=== PATIENT | female | born 1945 | race American Indian/Alaskan Native ===

== ENCOUNTER 2022-02-09 17:16 | Inpatient (IN) | payer MEDICARE ==
[2022-02-09] MEDS ORDERED: SODIUM CHLORIDE 0.9% 1000 ML 1,000 ML IV ONE (17:32)
--- NOTE | 2022-02-09 17:49 | Cat Scan Report ---
CT HEAD WITHOUT CONTRAST INDICATION / CLINICAL INFORMATION: Stroke symptoms. CVA. TECHNIQUE: All CT scans at this location are performed using CT dose reduction for ALARA by means of automated exposure control. COMPARISON: None available. FINDINGS: HEMORRHAGE: None. EXTRA-AXIAL SPACES: Normal in size and morphology for the patient's age. VENTRICULAR SYSTEM: Normal in size and morphology for the patient's age. CEREBRAL PARENCHYMA: Moderate white matter hypodensities likely representing microangiopathy. No acut e territorial infarct. MIDLINE SHIFT / HERNIATION: None. CEREBELLUM / BRAINSTEM: No significant abnormality. ORBITS: Normal as visualized. SOFT TISSUES: No significant abnormality. SKULL: No significant abnormality. PARANASAL SINUSES / MASTOID AIR CELLS: Normal as visualized. ADDITIONAL FINDINGS: None. IMPRESSION: 1. No acute intracranial abnormality. Signer Name: Tiffani Hernadez MD Signed: 02/09/2022 5:45 PM Workstation Name: [id number]
--- NOTE | 2022-02-09 17:53 | Consultation ---
History of Present Illness Consult date: 02/09/22 History of present illness: [facility] Consult Note # Demographics Consult Type: Acute Stroke Level 1 (0-4.5 hrs) Patient Location: Emergency Room First Name: Risa Last Name: Saadia Date of : 1945 Age: 77 Gender: Female Facility: [facility] Time of Initial Page ( Time): 02/09/2022, 17:11 Time of Return Call ( Time): 02/09/2022, 17:12 # HPI Chief Complaint: altered mental state weakness (generalized) History: Per EMS, patient with generalized weakness & altered mental status. Patient was going to facility to be assessed for hemorrhoids. Received 4mg Narcan without effect. No reported history of seizures, alcohol misuse, blood in mouth, or sphincter incontinence. Last Known Normal: I have collected independent history specific to time last normal or last known well. We have collaborated with the provider and at this time, we have the most current timeline with the information that is available. 4pm Duration: constant minutes hours Possible Thrombolytic candidate: not on warfarin or NOACs no intracranial hemorrhage history no recent major surgery # Scores Time of exam and NIHSS ( Time): 02/09/2022, 17:13 Level of Consciousness 1a: [1] = Not alert; but arousable by minor stim LOC Questions 1b: [2] = Answers neither correctly LOC Commands 1c: [2] = Performs neither correctly Best Gaze 2: [0] = Normal Visual 3: [0] = No visual loss Facial Palsy 4: [0] = Normal symmetrical movements Motor Arm Left 5a: [0] = No drift Motor Arm Right 5b: [0] = No drift Motor Leg Left 6a: [2] = Some effort against gravity Motor Leg Right 6b: [2] = Some effort against gravity Limb Ataxia 7: [0] = Absent Sensory 8: [0] = Normal Best Language 9: [1] = Hser-iw-jejuefws aphasia Dysarthria 10: [0] = Normal Extinction and Inattention 11: [0] = No abnormality NIHSS Total: 10 Modified Miranda Scale (mRS) pre-stroke: [0] = No Symptoms Modified Miranda Scale total: 0 VAN Screening: Negative # Exam SBP: 188 DBP: 84 Mental Status: awake confused sleepy Limited due to poor patient cooperation # ROS Unable to obtain ROS: altered mentation uncooperative # PMH-FH-SH Past Medical History: TIA # Data Glucose: 134 # Assessment Impression: Altered Mental Status Stroke (posterior circulation/ thalamic) versus seizure versus toxic/ metabolic encephalopathy # Plan Thrombolytic/Intervention: IV thrombolytic and possible IA candidate Thrombolytic Dosing: IV alteplase 0.9 mg/kg, max dose 90 mg; 10% of dose given over 1 minute IVP, remaining 90% given as infusion over 1 hour Possible IA Candidate: CTA pending Time IV Thrombolytic Recommended (Eastern Time): 02/09/2022, 17:40 Labs: ABG Ammonia B12 CBC comprehensive metabolic panel ESR hemoglobin A1c lipid panel thiamine troponin TSH urine drug screen ua Infectious work-up Imaging: (urgency: STAT): CT Angiogram Head and CT Angiogram Neck AND call back with results if abnormal Imaging: (urgency: routine): MRI Brain with AND without contrast Diagnostic Test: echo without bubble study EEG Therapy/Evaluation: NPO until swallow evaluation PT/OT evaluation speech/swallow consultation Medication: aspirin 81 mg daily start statin with goal of LDL < 70 DVT Prophylaxis: SCD chemical DVT prophylaxis Thrombolytic Administration Recommendations: Unable to obtain informed consent due to medical condition. No family available. In my opinion, benefits of IV thrombolytic therapy outweigh risks. I have collected independent history specific to time last normal or last known well. We have collaborated with the ED provider and at this time, we have the most current timeline with the information that is available. BP goal< 180/105 for 24hrs post Thrombolytic administration Use Labetolol 10-20mg IV prn or Nicardipine gtt to maintain BP parameters No antiplatelets or anticoagulants for next 24 hrs unless indicated for emergent IA procedure or other life threatening situation Unable to rule-out posterior circulation/ thalamic (or embolic) stroke in the current setting, which would warrant thrombolytic treatment given the current symptoms. Given the current persistent symptoms & reported lack of exclusion conditions, the patient is a potential candidate for thrombolysis as discussed with the ER Physician. Other: If patient has any neurological deterioration please call me back immediately telemetry monitoring I have discussed my recommendations with the referring provider Disposition: admit # Logistics Telemedicine: Interactive 2 way audio and visual telecommunication technology was utilized during this visit # Demographics First Name: Risa Last Name: Saadia Facility: [facility] Medications and Allergies Active Meds: Active Medications Sodium Chloride (Nacl 0.9% 1000 Ml) 1,000 mls @ 999 mls/hr IV BOLUS ONE Stop: 02/09/22 18:32
--- NOTE | 2022-02-09 18:33 | Cat Scan Report ---
CTA NECK WITH CONTRAST 02/09/2022 INDICATION / CLINICAL INFORMATION: CVA. COMPARISON: None. TECHNIQUE: Routine CTA of the neck is performed. 3-D/MIP reformats were postprocessed. Percentage st enosis is determined by direct quantitative measurements of diseased internal carotid artery diameter compared with normal distal internal carotid artery reference segments or by criteria similar to MARZENA CET where applicable. All CT scans at this location are performed using CT dose reduction for ALARA b y means of automated exposure control. CONTRAST: 100 ml of Omnipaque 350 FINDINGS: Carotid bifurcations: No significant abnormality Carotid arteries: No significant abnormality. Cervical vertebral arteries: No significant abnormality. Aortic arch: No significant abnormality. Moderately enlarged nodular right lobe of the thyroid is present, consistent with multinodular goiter . IMPRESSION: No significant abnormality. Signer Name: Shubham Ding MD Signed: 02/09/2022 6:29 PM Workstation Name: [id number]
--- NOTE | 2022-02-09 18:35 | Cat Scan Report ---
CTA HEAD WITH CONTRAST 02/09/2022 HISTORY: CVA 100ml of [id number] . COMPARISON: None. TECHNIQUE: All CT scans at this location are performed using CT dose reduction for ALARA by means of automated exposure control.. 3-D/MIP reformats postprocessed. Percentage stenosis is determined by d irect quantitative measurements of diseased internal carotid artery diameter compared with normal dis carl internal carotid artery reference segments or by criteria similar to NASCET where applicable. CONTRAST: 100 ml of Omnipaque 350 FINDINGS: CTA HEAD: Intracranial vertebral arteries: No significant abnormality. Basilar artery: No significant abnormality. Posterior cerebral arteries: No significant abnormality. Intracranial internal carotid arteries: No significant abnormality. Anterior cerebral arteries: No significant abnormality. Middle cerebral arteries: No significant abnormality. Dural venous sinuses:Not optimally opacified. No significant abnormality. Additional findings: None. IMPRESSION: 1. No significant abnormality. Signer Name: Shubham Ding MD Signed: 02/09/2022 6:30 PM Workstation Name: [id number]
--- NOTE | 2022-02-09 19:59 | XRay Report ---
CHEST 1 VIEW 02/09/2022 6:50 PM INDICATION / CLINICAL INFORMATION: CVA. COMPARISON: None available. FINDINGS: SUPPORT DEVICES: None. HEART / MEDIASTINUM: No significant abnormality. LUNGS / PLEURA: No significant pulmonary abnormality. No significant pleural effusion. No pneumothora x. ADDITIONAL FINDINGS: No significant additional findings. IMPRESSION: 1. No acute abnormality of the chest. Signer Name: Jermaine David MD Signed: 02/09/2022 7:55 PM Workstation Name: [id number]
[2022-02-09 20:04] LABS: Basophils # (Auto) 0.1 K/mm3 (0.0-0.1); Basophils % (Auto) 0.8 % (0.0-1.8); Hematocrit 46.6 % (30.3-42.9); Hemoglobin 14.7 gm/dl (10.1-14.3); Lymphocytes # (Auto) 0.8 K/mm3 (1.2-5.4); Lymphocytes % (Auto) 10.2 % (13.4-35.0); Mean Corpuscular HGB Conc 32 % (30-34); Mean Corpuscular Volume 82 fl (79-97); Monocytes # (Auto) 0.2 K/mm3 (0.0-0.8); Monocytes % (Auto) 2.5 % (0.0-7.3); Platelet Count 148 K/mm3 (140-440); Red Blood Count 5.66 M/mm3 (3.65-5.03); Red Cell Distribution Width 14.6 % (13.2-15.2)
--- NOTE | 2022-02-09 20:04 | Emergency Department Report ---
ED Altered Mental Status HPI - General Chief Complaint: Altered Mental Status Stated Complaint: POSSIBLE STROKE PUI?: No Time Seen by Provider: 02/09/22 17:42 Source: EMS Mode of arrival: Stretcher Limitations: Altered Mental Status - History of Present Illness Initial Comments: Per EMS, patient with generalized weakness & altered mental status. Patient was going to facility to be assessed for hemorrhoids. Received 4mg Narcan without effect. No reported history of seizures, alcohol misuse, blood in mouth, or sphincter incontinence. pt was transported from [place] in [facility] was transferred as stroke alert [facility] [id number] this afternoon Complaint: altered mental status, weakness -: Sudden, hour(s) Severity: moderate Consistency of Symptoms: constant Associated Symptoms: denies: denies other symptoms, chest pain, cough, diaphoresis, fever/chills - Related Data Allergies Allergy/AdvReac Type Severity Reaction Status Date / Time No Known Allergies Allergy Verified 02/09/22 18:28 ED Review of Systems ROS: Stated complaint: POSSIBLE STROKE Other details as noted in HPI Comment: Unobtainable due to pts medical conditions ED Past Medical Hx - Past Medical History Previous Medical History?: No Hx Hypertension: No ED Physical Exam - General Limitations: Altered Mental Status General appearance: other (weak drowsy but arousable , ) - Head Head exam: Present: atraumatic, normocephalic - Eye Eye exam: Present: normal appearance - ENT ENT exam: Present: mucous membranes moist - Neck Neck exam: Present: normal inspection - Respiratory Respiratory exam: Present: normal lung sounds bilaterally. Absent: respiratory distress - Cardiovascular Cardiovascular Exam: Present: regular rate, normal rhythm. Absent: systolic murmur, diastolic murmur, rubs, gallop - GI/Abdominal GI/Abdominal exam: Present: soft, normal bowel sounds - Extremities Exam Extremities exam: Present: normal inspection - Back Exam Back exam: Present: normal inspection - Neurological Exam Neurological exam: Present: alert, oriented X3 - Psychiatric Psychiatric exam: Present: normal affect, normal mood - Skin Skin exam: Present: warm, dry, intact, normal color. Absent: rash - Assessment Assessment Interval: Baseline - Level of Consciousness 1a. Level of Consciousness: arousable/minor stimuli - LOC Questions 1b. LOC Questions: answers no questions correctly - LOC Command 1c. LOC Commands: performs tasks correctly - Best Gaze 2. Best Gaze: normal - Visual 3. Visual: no visual loss - Facial Palsy 4. Facial Palsy: normal symmetrical movement - Motor Arm 5a. Motor Arm Left: no drift 5b. Motor Arm Right: no drift - Motor Leg 6a. Motor Leg Left: some gravity effort 6b. Motor Leg Right: some gravity effort - Limb Ataxia 7. Limb Ataxia: absent - Sensory 8. Sensory: mild/moderate sensory loss - Best Language 9. Best Language: mild/moderate aphasia - Dysarthria 10. Dysarthria: mild/moderate dysarthria - Extinction and Inattention 11. Extinction/Inattention: no abnormality - Scoring Total Score: 10 Stroke Severity: Moderate Stroke ED Course Vital Signs 02/09/22 02/09/22 18:30 19:07 Temperature 98.1 F Pulse Rate 91 H Respiratory 16 Rate Blood Pressure 157/67 [Right] O2 Sat by Pulse 99 97 Oximetry - Lab Data Result diagrams: 02/09/22 19:07 02/09/22 19:07 Lab Results 02/09/22 02/09/22 02/09/22 Range/Units 19:07 19:07 19:07 WBC 7.6 (4.5-11.0) K/mm3 RBC 5.66 H (3.65-5.03) M/mm3 Hgb 14.7 H (10.1-14.3) gm/dl Hct 46.6 H (30.3-42.9) % MCV 82 (79-97) fl MCH 26 L (28-32) pg MCHC 32 (30-34) % RDW 14.6 (13.2-15.2) % Plt Count 148 (140-440) K/mm3 Lymph % (Auto) 10.2 L (13.4-35.0) % [place] % (Auto) 2.5 (0.0-7.3) % Eos % (Auto) 0.0 (0.0-4.3) % Baso % (Auto) 0.8 (0.0-1.8) % Lymph # (Auto) 0.8 L (1.2-5.4) K/mm3 [place] # (Auto) 0.2 (0.0-0.8) K/mm3 Eos # (Auto) 0.0 (0.0-0.4) K/mm3 Baso # (Auto) 0.1 (0.0-0.1) K/mm3 Seg Neutrophils % 86.5 H (40.0-70.0) % Seg Neutrophils # 6.6 (1.8-7.7) K/mm3 Sodium 139 (137-145) mmol/L Potassium 4.2 (3.6-5.0) mmol/L Chloride 96.6 L (98-107) mmol/L Carbon Dioxide 24 (22-30) mmol/L Anion Gap 23 mmol/L BUN 15 (7-17) mg/dL Creatinine 0.7 (0.6-1.2) mg/dL Estimated GFR > 60 ml/min BUN/Creatinine Ratio 21 % Glucose 125 H (65-100) mg/dL Lactic Acid 3.20 H* (0.7-2.0) mmol/L Calcium 9.7 (8.4-10.2) mg/dL AST 32 (5-40) units/L ALT 23 (7-56) units/L Alkaline Phosphatase 120 (35-129) units/L Total Creatine Kinase 216 H (30-135) units/L CK-MB (CK-2) 4.1 H (0.0-4.0) ng/mL CK-MB (CK-2) Rel Index 1.8 (0-4) Troponin T < 0.010 (0.00-0.029) ng/mL C-Reactive Protein (0.00-1.30) mg/dL NT-Pro-B Natriuret Pep (0-900) pg/mL Total Protein 7.4 (6.3-8.2) g/dL Albumin 4.7 (3.9-5) g/dL Albumin/Globulin Ratio 1.7 % Plasma/Serum Alcohol (0-0.07) % 02/09/22 02/09/22 02/09/22 Range/Units 19:07 19:07 19:07 WBC (4.5-11.0) K/mm3 RBC (3.65-5.03) M/mm3 Hgb (10.1-14.3) gm/dl Hct (30.3-42.9) % MCV (79-97) fl MCH (28-32) pg MCHC (30-34) % RDW (13.2-15.2) % Plt Count (140-440) K/mm3 Lymph % (Auto) (13.4-35.0) % [place] % (Auto) (0.0-7.3) % Eos % (Auto) (0.0-4.3) % Baso % (Auto) (0.0-1.8) % Lymph # (Auto) (1.2-5.4) K/mm3 [place] # (Auto) (0.0-0.8) K/mm3 Eos # (Auto) (0.0-0.4) K/mm3 Baso # (Auto) (0.0-0.1) K/mm3 Seg Neutrophils % (40.0-70.0) % Seg Neutrophils # (1.8-7.7) K/mm3 Sodium (137-145) mmol/L Potassium (3.6-5.0) mmol/L Chloride (98-107) mmol/L Carbon Dioxide (22-30) mmol/L Anion Gap mmol/L BUN (7-17) mg/dL Creatinine (0.6-1.2) mg/dL Estimated GFR ml/min BUN/Creatinine Ratio % Glucose (65-100) mg/dL Lactic Acid (0.7-2.0) mmol/L Calcium (8.4-10.2) mg/dL AST (5-40) units/L ALT (7-56) units/L Alkaline Phosphatase (35-129) units/L Total Creatine Kinase 217 H 198 H (30-135) units/L CK-MB (CK-2) (0.0-4.0) ng/mL CK-MB (CK-2) Rel Index (0-4) Troponin T < 0.010 (0.00-0.029) ng/mL C-Reactive Protein 0.30 (0.00-1.30) mg/dL NT-Pro-B Natriuret Pep 590.2 (0-900) pg/mL Total Protein (6.3-8.2) g/dL Albumin (3.9-5) g/dL Albumin/Globulin Ratio % Plasma/Serum Alcohol < 0.01 (0-0.07) % - EKG Data -: EKG Interpreted by Oh EKG shows normal: sinus rhythm Rate: tachycardia Interpretation: other (PACs ) - Radiology Data Radiology results: report reviewed, image reviewed - Medical Decision Making spoke with dr Egan and she approved admission stroke alert on arrival negative head and neck CT and CTA spoke with neuro , reommended TPA upon getting more history from ANTONIETA was ealrier than 2 pm, more around 9-[address] lowery neurology and decided she is out of window for TPA , will admit for AMS , confusion and stroke work up - NEXUS Criteria Focal neurological deficit present: No Midline spinal tenderness present: No Altered level of consciousness: Yes Intoxication present: No NEXUS results: C-Spine cannot be cleared clinically by these results. Imaging is required. Critical care attestation.: If time is entered above; I have spent that time in minutes in the direct care of this critically ill patient, excluding procedure time. ED Disposition Clinical Impression: AMS (altered mental status), Confusion, Weakness, Hypertensive encephalopathy Disposition: ADMITTED INPATIENT Is pt being admited?: Yes Does the pt Need Aspirin: No Condition: Stable Referrals: SIXTO MONTAÑO MD [Primary Care Provider] - 3-5 Days
[2022-02-09 20:17] LABS: Creatine Kinase MB 4.1 ng/mL (0.0-4.0)
[2022-02-09 20:18] LABS: Alanine Aminotransferase 23 units/L (7-56); Albumin 4.7 g/dL (3.9-5); Blood Urea Nitrogen 15 mg/dL (7-17); Calcium 9.7 mg/dL (8.4-10.2); Hemolysis Index 21
[2022-02-09 20:29] LABS: BUN/Creatinine Ratio 21
[2022-02-09] MEDS ORDERED: METOPROLOL TARTRATE 5 MG/5 ML INJ IV ONE (20:41)
[2022-02-09] MEDS ORDERED: cefTRIAXone/NS 1 GM/50 ML 1 GM/50 ML BAG IV ONE (20:41)
[2022-02-09 21:27] LABS: Color,Urine Colorless (Yellow)
[2022-02-09 21:39] LABS: Amphetamine Screen,Urine Negative; Benzodiazepines Screen,Urine Negative; Cannabinoid Screen,Urine Negative; Cocaine Screen,Urine Negative; Methadone Screen,Urine Negative; Opiate Screen,Urine Negative
[2022-02-09 21:40] LABS: Mucus,Urine FEW /HPF
[2022-02-09] MEDS ORDERED: MORPHINE 2 MG/1 ML INJ IV PRN (22:04)
[2022-02-09] MEDS ORDERED: ONDANSETRON 4 MG/2 ML INJ IV PRN (22:04)
[2022-02-09] MEDS ORDERED: MORPHINE 4 MG/1 ML INJ IV PRN (22:04)
--- NOTE | 2022-02-09 22:14 | History and Physical Report ---
History of Present Illness Date of examination: 02/09/22 Date of admission: 02/09/22 Chief complaint: Altered mental status Confusion History of present illness: 77 years old female with history of hypertension was brought to the emergency room because of generalized weakness & altered mental status. Patient was going to facility to be assessed for hemorrhoids. Received 4mg Narcan without effect. No reported history of seizures, alcohol misuse, blood in mouth, or sphincter incontinence. pt was transported from [place] in [facility]. Patient was transferred as stroke alert [facility] [id number] this afternoon . spoke with dr Egan and she approved admission stroke alert on arrival negative head and neck CT and CTA spoke with neuro , reommended TPA upon getting more history from LKN was ealrier than 2 pm, more around 9-[address] lowery neurology and decided she is out of window for TPA , will admit for AMS , confusion and stroke work up Past History Past Medical History: hypertension Past Surgical History: No surgical history Social history: no significant social history Family history: hypertension Medications and Allergies Allergies Allergy/AdvReac Type Severity Reaction Status Date / Time No Known Allergies Allergy Verified 02/09/22 18:28 Review of Systems All systems: negative Constitutional: fatigue, weakness, malaise, lethargy, other (Altered mental status) Exam - Constitutional Vitals: Temp Pulse Resp BP Pulse Ox 98.1 F 83 23 164/70 97 02/09/22 18:30 02/09/22 22:00 02/09/22 22:00 02/09/22 22:00 02/09/22 22:00 General appearance: Present: no acute distress, well-nourished - EENT Eyes: Present: PERRL ENT: hearing intact, clear oral mucosa - Neck Neck: Present: supple, normal ROM - Respiratory Respiratory effort: normal Respiratory: bilateral: CTA - Cardiovascular Heart Sounds: Present: S1 & S2. Absent: rub, click - Extremities Extremities: pulses symmetrical, No edema Peripheral Pulses: within normal limits - Abdominal General gastrointestinal: Present: soft, non-tender, non-distended, normal bowel sounds Female genitourinary: Present: normal - Integumentary Integumentary: Present: clear, warm, dry - Musculoskeletal Musculoskeletal: gait normal, strength equal bilaterally - Neurologic Neurologic: CNII-XII intact, moves all extremities HEART Score - HEART Score Troponin: Troponin T < 0.010 ng/mL (0.00-0.029) 02/09/22 19:07 Troponin T < 0.010 ng/mL (0.00-0.029) 02/09/22 19:07 Results - Labs CBC & Chem 7: 02/09/22 19:07 02/09/22 19:07 Labs: Laboratory Last Values WBC 7.6 K/mm3 (4.5-11.0) 02/09/22 19:07 RBC 5.66 M/mm3 (3.65-5.03) H 02/09/22 19:07 Hgb 14.7 gm/dl (10.1-14.3) H 02/09/22 19:07 Hct 46.6 % (30.3-42.9) H 02/09/22 19:07 MCV 82 fl (79-97) 02/09/22 19:07 MCH 26 pg (28-32) L 02/09/22 19:07 MCHC 32 % (30-34) 02/09/22 19:07 RDW 14.6 % (13.2-15.2) 02/09/22 19:07 Plt Count 148 K/mm3 (140-440) 02/09/22 19:07 Lymph % (Auto) 10.2 % (13.4-35.0) L 02/09/22 19:07 [place] % (Auto) 2.5 % (0.0-7.3) 02/09/22 19:07 Eos % (Auto) 0.0 % (0.0-4.3) 02/09/22 19:07 Baso % (Auto) 0.8 % (0.0-1.8) 02/09/22 19:07 Lymph # (Auto) 0.8 K/mm3 (1.2-5.4) L 02/09/22 19:07 [place] # (Auto) 0.2 K/mm3 (0.0-0.8) 02/09/22 19:07 Eos # (Auto) 0.0 K/mm3 (0.0-0.4) 02/09/22 19:07 Baso # (Auto) 0.1 K/mm3 (0.0-0.1) 02/09/22 19:07 Seg Neutrophils % 86.5 % (40.0-70.0) H 02/09/22 19:07 Seg Neutrophils # 6.6 K/mm3 (1.8-7.7) 02/09/22 19:07 Sodium 139 mmol/L (137-145) 02/09/22 19:07 Potassium 4.2 mmol/L (3.6-5.0) 02/09/22 19:07 Chloride 96.6 mmol/L (98-107) L 02/09/22 19:07 Carbon Dioxide 24 mmol/L (22-30) 02/09/22 19:07 Anion Gap 23 mmol/L 02/09/22 19:07 BUN 15 mg/dL (7-17) 02/09/22 19:07 Creatinine 0.7 mg/dL (0.6-1.2) 02/09/22 19:07 Estimated GFR > 60 ml/min 02/09/22 19:07 BUN/Creatinine Ratio 21 % 02/09/22 19:07 Glucose 125 mg/dL (65-100) H 02/09/22 19:07 Lactic Acid 3.80 mmol/L (0.7-2.0) H* 02/09/22 20:42 Calcium 9.7 mg/dL (8.4-10.2) 02/09/22 19:07 Total Bilirubin 1.80 mg/dL (0.1-1.2) H 02/09/22 19:07 AST 32 units/L (5-40) 02/09/22 19:07 ALT 23 units/L (7-56) 02/09/22 19:07 Alkaline Phosphatase 120 units/L (35-129) 02/09/22 19:07 Total Creatine Kinase 198 units/L (30-135) H 02/09/22 19:07 Total Creatine Kinase 216 units/L (30-135) H 02/09/22 19:07 Total Creatine Kinase 217 units/L (30-135) H 02/09/22 19:07 CK-MB (CK-2) 4.1 ng/mL (0.0-4.0) H 02/09/22 19:07 CK-MB (CK-2) Rel Index 1.8 (0-4) 02/09/22 19:07 Troponin T < 0.010 ng/mL (0.00-0.029) 02/09/22 19:07 Troponin T < 0.010 ng/mL (0.00-0.029) 02/09/22 19:07 C-Reactive Protein 0.30 mg/dL (0.00-1.30) 02/09/22 19:07 NT-Pro-B Natriuret Pep 590.2 pg/mL (0-900) 02/09/22 19:07 Total Protein 7.4 g/dL (6.3-8.2) 02/09/22 19:07 Albumin 4.7 g/dL (3.9-5) 02/09/22 19:07 Albumin/Globulin Ratio 1.7 % 02/09/22 19:07 Urine Color Colorless (Yellow) 02/09/22 20:40 Urine Turbidity Clear (Clear) 02/09/22 20:40 Specific [place] (Man) 1.005 (1.003-1.030) 02/09/22 20:40 Ur Protein (Man) <30 mg dl mg/dL (Negative) 02/09/22 20:40 Ur Ketones (Man) Negative (Negative) 02/09/22 20:40 Ur Nitrite (Man) Negative (Negative) 02/09/22 20:40 Urine Bilirubin (Man) Negative (Negative) 02/09/22 20:40 Leukocyte Esterase (Man) Negative (Negative) 02/09/22 20:40 Urine WBC (Auto) 1.0 /HPF (0.0-6.0) 02/09/22 20:40 Urine RBC (Auto) 3.0 /HPF (0.0-6.0) 02/09/22 20:40 U Epithel Cells (Auto) 2.0 /HPF (0-13.0) 02/09/22 20:40 Urine RBC (Manual) 3+ (Negative) 02/09/22 20:40 Urine Mucus Few /HPF 02/09/22 20:40 Salicylates < 0.3 mg/dL (2.8-20.0) L 02/09/22 19:07 Urine Opiates Screen Negative 02/09/22 20:40 Urine Methadone Screen Negative 02/09/22 20:40 Ur Barbiturates Screen Negative 02/09/22 20:40 Ur Phencyclidine Scrn Negative 02/09/22 20:40 Ur Amphetamines Screen Negative 02/09/22 20:40 U Benzodiazepines Scrn Negative 02/09/22 20:40 Urine Cocaine Screen Negative 02/09/22 20:40 U Marijuana (THC) Screen Negative 02/09/22 20:40 Plasma/Serum Alcohol < 0.01 % (0-0.07) 02/09/22 19:07 - Imaging and Cardiology CT Scan - head: report reviewed Assessment and Plan VTE prophylaxis?: Mechanical Plan of care discussed with patient/family: Yes - Patient Problems (1) Acute metabolic encephalopathy Current Visit: Yes Status: Acute Plan to address problem: Admit the patient to the medical telemetry. NPO. D5 half-normal saline at the rate of 100 cc/h. Aspirin 325 mg p.o. daily. Lipitor 40 mg p.o. daily. MRI of the brain MRA of the brain and neck. Neurology evaluation (2) Hypertension Current Visit: Yes Status: Acute Plan to address problem: Labetalol 10 mg IV every 6 hours as needed. We continue the home medication (3) Confusion Current Visit: Yes Status: Acute Plan to address problem: D5 half-normal saline at the rate of 100 cc/h. Aspirin 325 mg p.o. daily. Lipitor 40 mg p.o. daily. MRI of the brain MRA of the brain and neck. Neurology evaluation (4) Hypertensive encephalopathy Current Visit: Yes Status: Acute Plan to address problem: Labetalol 10 mg IV every 6 hours as needed. We continue the home medication. MRI of the brain. Neurology evaluation (5) Weakness Current Visit: Yes Status: Acute Plan to address problem: PT OT speech evaluation. Multivitamin 1 tablet p.o. daily. (6) Lactic acidosis Current Visit: Yes Status: Acute Plan to address problem: D5 half-normal saline at the rate of 100 cc/h. Rocephin 2 g IV daily. Repeat lactic acid in 4 hours (7) DVT prophylaxis Current Visit: Yes Status: Acute Plan to address problem: SCD for DVT prophylaxis. Pepcid 20 mg IV every 12 hours for GI prophylaxis. Patient is a full code
[2022-02-09] MEDS ORDERED: D5W/0.45% NACL 1,000 ML IV SCH (23:00)
[2022-02-09 23:05] LABS: Partial Thromboplastin Time 31.5 Sec. (24.2-36.6)
[2022-02-09 23:06] LABS: Thrombin Time 22.5 Sec. (15.1-19.6)
[2022-02-09 23:09] LABS: INR 1.13 (0.87-1.13)
--- NOTE | 2022-02-10 09:24 | Progress Note ---
Assessment and Plan Assessment and plan: - Patient Problems (1) Acute metabolic encephalopathy Current Visit: Yes Status: Acute Plan to address problem: Admit the patient to the medical telemetry. NPO. D5 half-normal saline at the rate of 100 cc/h. Aspirin 325 mg p.o. daily. Lipitor 40 mg p.o. daily. MRI of the brain MRA of the brain and neck. Neurology evaluation (2) Hypertension Current Visit: Yes Status: Acute Plan to address problem: Labetalol 10 mg IV every 6 hours as needed. We continue the home medication (3) Confusion Current Visit: Yes Status: Acute Plan to address problem: D5 half-normal saline at the rate of 100 cc/h. Aspirin 325 mg p.o. daily. Lipitor 40 mg p.o. daily. MRI of the brain MRA of the brain and neck. Neurology evaluation (4) Hypertensive encephalopathy Current Visit: Yes Status: Acute Plan to address problem: Labetalol 10 mg IV every 6 hours as needed. We continue the home medication. MRI of the brain. Neurology evaluation (5) Weakness Current Visit: Yes Status: Acute Plan to address problem: PT OT speech evaluation. Multivitamin 1 tablet p.o. daily. (6) Lactic acidosis Current Visit: Yes Status: Acute Plan to address problem: D5 half-normal saline at the rate of 100 cc/h. Rocephin 2 g IV daily. Repeat lactic acid in 4 hours (7) DVT prophylaxis Current Visit: Yes Status: Acute Plan to address problem: SCD for DVT prophylaxis. Pepcid 20 mg IV every 12 hours for GI prophylaxis. Patient is a full code Follow PT OT evaluation recommendations Follow neurology evaluation recommendation Possible discharge home tomorrow if stable History Interval history: Seen and examined the patient at the bedside Patient's chart and medications reviewed No new events reported by the nursing staff Patient's neuro work-up is in progress Patient feels slightly better complains of generalized weakness Hospitalist Physical - Constitutional Vitals: Temp Pulse Resp BP Pulse Ox 98.0 F 93 H 18 158/71 96 02/10/22 03:00 02/10/22 03:00 02/10/22 03:00 02/10/22 03:00 02/10/22 03:00 General appearance: Present: no acute distress, well-nourished - EENT Eyes: Present: PERRL, EOM intact - Neck Neck: Present: supple, normal ROM - Respiratory Respiratory effort: normal Respiratory: bilateral: diminished, negative: rales, rhonchi, wheezing - Cardiovascular Rhythm: regular Heart Sounds: Present: S1 & S2 - Extremities Extremities: no ischemia, No edema - Abdominal General gastrointestinal: soft, non-tender, non-distended, normal bowel sounds - Integumentary Integumentary: Present: clear, warm - Psychiatric Psychiatric: appropriate mood/affect, cooperative - Neurologic Neurologic: CNII-XII intact, moves all extremities HEART Score - HEART Score Troponin: Troponin T < 0.010 ng/mL (0.00-0.029) 02/09/22 19:07 Troponin T < 0.010 ng/mL (0.00-0.029) 02/09/22 19:07 Results - Labs CBC & Chem 7: 02/10/22 04:00 02/10/22 04:00 Labs: Laboratory Last Values WBC 7.6 K/mm3 (4.5-11.0) 02/09/22 19:07 RBC 5.66 M/mm3 (3.65-5.03) H 02/09/22 19:07 Hgb 14.7 gm/dl (10.1-14.3) H 02/09/22 19:07 Hct 46.6 % (30.3-42.9) H 02/09/22 19:07 MCV 82 fl (79-97) 02/09/22 19:07 MCH 26 pg (28-32) L 02/09/22 19:07 MCHC 32 % (30-34) 02/09/22 19:07 RDW 14.6 % (13.2-15.2) 02/09/22 19:07 Plt Count 148 K/mm3 (140-440) 02/09/22 19:07 Lymph % (Auto) 10.2 % (13.4-35.0) L 02/09/22 19:07 [place] % (Auto) 2.5 % (0.0-7.3) 02/09/22 19:07 Eos % (Auto) 0.0 % (0.0-4.3) 02/09/22 19:07 Baso % (Auto) 0.8 % (0.0-1.8) 02/09/22 19:07 Lymph # (Auto) 0.8 K/mm3 (1.2-5.4) L 02/09/22 19:07 [place] # (Auto) 0.2 K/mm3 (0.0-0.8) 02/09/22 19:07 Eos # (Auto) 0.0 K/mm3 (0.0-0.4) 02/09/22 19:07 Baso # (Auto) 0.1 K/mm3 (0.0-0.1) 02/09/22 19:07 Seg Neutrophils % 86.5 % (40.0-70.0) H 02/09/22 19:07 Seg Neutrophils # 6.6 K/mm3 (1.8-7.7) 02/09/22 19:07 PT 16.1 Sec. (12.2-14.9) H 02/09/22 21:18 INR 1.13 (0.87-1.13) 02/09/22 21:18 APTT 31.5 Sec. (24.2-36.6) 02/09/22 21:18 Thrombin Time 22.5 Sec. (15.1-19.6) H 02/09/22 21:18 Sodium 139 mmol/L (137-145) 02/09/22 19:07 Potassium 4.2 mmol/L (3.6-5.0) 02/09/22 19:07 Chloride 96.6 mmol/L (98-107) L 02/09/22 19:07 Carbon Dioxide 24 mmol/L (22-30) 02/09/22 19:07 Anion Gap 23 mmol/L 02/09/22 19:07 BUN 15 mg/dL (7-17) 02/09/22 19:07 Creatinine 0.7 mg/dL (0.6-1.2) 02/09/22 19:07 Estimated GFR > 60 ml/min 02/09/22 19:07 BUN/Creatinine Ratio 21 % 02/09/22 19:07 Glucose 125 mg/dL (65-100) H 02/09/22 19:07 POC Glucose 142 mg/dL (70-105) H 02/10/22 07:30 Ketones Quantitative Negative (Negative) 02/09/22 19:07 Lactic Acid 3.80 mmol/L (0.7-2.0) H* 02/09/22 22:41 Calcium 9.7 mg/dL (8.4-10.2) 02/09/22 19:07 Total Bilirubin 1.80 mg/dL (0.1-1.2) H 02/09/22 19:07 AST 32 units/L (5-40) 02/09/22 19:07 ALT 23 units/L (7-56) 02/09/22 19:07 Alkaline Phosphatase 120 units/L (35-129) 02/09/22 19:07 Total Creatine Kinase 198 units/L (30-135) H 02/09/22 19:07 Total Creatine Kinase 216 units/L (30-135) H 02/09/22 19:07 Total Creatine Kinase 217 units/L (30-135) H 02/09/22 19:07 CK-MB (CK-2) 4.1 ng/mL (0.0-4.0) H 02/09/22 19:07 CK-MB (CK-2) Rel Index 1.8 (0-4) 02/09/22 19:07 Troponin T < 0.010 ng/mL (0.00-0.029) 02/09/22 19:07 Troponin T < 0.010 ng/mL (0.00-0.029) 02/09/22 19:07 C-Reactive Protein 0.30 mg/dL (0.00-1.30) 02/09/22 19:07 NT-Pro-B Natriuret Pep 590.2 pg/mL (0-900) 02/09/22 19:07 Total Protein 7.4 g/dL (6.3-8.2) 02/09/22 19:07 Albumin 4.7 g/dL (3.9-5) 02/09/22 19:07 Albumin/Globulin Ratio 1.7 % 02/09/22 19:07 Urine Color Colorless (Yellow) 02/09/22 20:40 Urine Turbidity Clear (Clear) 02/09/22 20:40 Specific [place] (Man) 1.005 (1.003-1.030) 02/09/22 20:40 Ur Protein (Man) <30 mg dl mg/dL (Negative) 02/09/22 20:40 Ur Ketones (Man) Negative (Negative) 02/09/22 20:40 Ur Nitrite (Man) Negative (Negative) 02/09/22 20:40 Urine Bilirubin (Man) Negative (Negative) 02/09/22 20:40 Leukocyte Esterase (Man) Negative (Negative) 02/09/22 20:40 Urine WBC (Auto) 1.0 /HPF (0.0-6.0) 02/09/22 20:40 Urine RBC (Auto) 3.0 /HPF (0.0-6.0) 02/09/22 20:40 U Epithel Cells (Auto) 2.0 /HPF (0-13.0) 02/09/22 20:40 Urine RBC (Manual) 3+ (Negative) 02/09/22 20:40 Urine Mucus Few /HPF 02/09/22 20:40 Salicylates < 0.3 mg/dL (2.8-20.0) L 02/09/22 19:07 Urine Opiates Screen Negative 02/09/22 20:40 Urine Methadone Screen Negative 02/09/22 20:40 Ur Barbiturates Screen Negative 02/09/22 20:40 Ur Phencyclidine Scrn Negative 02/09/22 20:40 Ur Amphetamines Screen Negative 02/09/22 20:40 U Benzodiazepines Scrn Negative 02/09/22 20:40 Urine Cocaine Screen Negative 02/09/22 20:40 U Marijuana (THC) Screen Negative 02/09/22 20:40 Drugs of Abuse Note Disclamer 02/09/22 20:40 Plasma/Serum Alcohol < 0.01 % (0-0.07) 02/09/22 19:07 Khan/IV: Voiding Method Indwelling Catheter Active Medications - Current Medications Current Medications: Generic Name Dose Route Start Last Admin Trade Name Freq PRN Reason Stop Dose Admin Acetaminophen 650 mg 02/09/22 22:04 Acetaminophen 325 Mg Tab PO Q4H PRN Pain MILD(1-3)/Fever >100.5/VÁZQUEZ Aspirin 325 mg 02/10/22 10:00 Aspirin 325 Mg Tab PO QDAY [facility] Atorvastatin Calcium 40 mg 02/10/22 22:00 Atorvastatin 40 Mg Tab PO QHS STACIE Famotidine 20 mg 02/10/22 10:00 Famotidine 20 Mg/2 Ml Inj IV BID [facility] Dextrose/Sodium Chloride 1,000 mls @ 100 mls/hr 02/09/22 23:00 02/10/22 02:12 D5/0.45ns IV 100 mls/hr DIRECT STACIE Administration Ceftriaxone Sodium 2 gm in 100 mls @ 200 mls/hr 02/10/22 10:00 Rocephin/Ns 2 Gm/100 Ml IV Q24H [facility] Protocol Labetalol HCl 10 mg 02/09/22 22:04 02/10/22 02:48 Labetalol 20 Mg/4 Ml Inj IV 10 mg Q5MIN PRN Administration to maintain SBP < 180 Morphine Sulfate 2 mg 02/09/22 22:04 Morphine 2 Mg/1 Ml Inj IV Q4H PRN Pain, Moderate (4-6) Morphine Sulfate 4 mg 02/09/22 22:04 Morphine 4 Mg/1 Ml Inj IV Q4H PRN Pain , Severe (7-10) Ondansetron HCl 4 mg 02/09/22 22:04 Ondansetron 4 Mg/2 Ml Inj IV Q8H PRN Nausea And Vomiting Sodium Chloride 10 ml 02/10/22 10:00 Sodium Chloride 0.9% 10 Ml Flush Syringe IV BID STACIE Sodium Chloride 10 ml 02/09/22 22:04 Sodium Chloride 0.9% 10 Ml Flush Syringe IV PRN PRN LINE FLUSH
[2022-02-10] MEDS: FAMOTIDINE 20 MG/2 ML INJ IV SCH ×2 (10:25→21:16)
[2022-02-10] MEDS: cefTRIAXone/NS 2 GM/100 ML 2 GM/100 ML BAG IV SCH (10:25)
--- NOTE | 2022-02-10 10:33 | Electrocardiograph Report ---
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
--- NOTE | 2022-02-10 10:46 | Consultation ---
History of Present Illness Consult date: 02/10/22 Reason for Consult: ams Chief complaint: "I am okay now." History of present illness: 77 yo left-handed female with hypertension who suffered an episode yesterday of not knowing who she is but able to recognize her . No seizure like activity noted. Notes chronic left hand weakness for the last 8 to 9 months. Currently, she feels like she is at her baseline and her , at bedside, agrees. Past History Past Medical History: hypertension Past Surgical History: No surgical history Social history: no significant social history Family history: hypertension Medications and Allergies Allergies Allergy/AdvReac Type Severity Reaction Status Date / Time No Known Allergies Allergy Verified 02/09/22 18:28 Active Meds: Active Medications Acetaminophen (Acetaminophen 325 Mg Tab) 650 mg PO Q4H PRN PRN Reason: Pain MILD(1-3)/Fever >100.5/VÁZQUEZ Aspirin (Aspirin 325 Mg Tab) 325 mg PO QDAY STACIE Atorvastatin Calcium (Atorvastatin 40 Mg Tab) 40 mg PO QHS STACIE Famotidine (Famotidine 20 Mg/2 Ml Inj) 20 mg IV BID STACIE Last Admin: 02/10/22 10:25 Dose: 20 mg Dextrose/Sodium Chloride (D5/0.45ns) 1,000 mls @ 100 mls/hr IV DIRECT STACIE Last Admin: 02/10/22 02:12 Dose: 100 mls/hr Ceftriaxone Sodium (Rocephin/Ns 2 Gm/100 Ml) 2 gm in 100 mls @ 200 mls/hr IV Q24H STACIE; Protocol Last Admin: 02/10/22 10:25 Dose: 200 mls/hr Labetalol HCl (Labetalol 20 Mg/4 Ml Inj) 10 mg IV Q5MIN PRN PRN Reason: to maintain SBP < 180 Last Admin: 02/10/22 02:48 Dose: 10 mg Morphine Sulfate (Morphine 2 Mg/1 Ml Inj) 2 mg IV Q4H PRN PRN Reason: Pain, Moderate (4-6) Morphine Sulfate (Morphine 4 Mg/1 Ml Inj) 4 mg IV Q4H PRN PRN Reason: Pain , Severe (7-10) Ondansetron HCl (Ondansetron 4 Mg/2 Ml Inj) 4 mg IV Q8H PRN PRN Reason: Nausea And Vomiting Sodium Chloride (Sodium Chloride 0.9% 10 Ml Flush Syringe) 10 ml IV BID STACIE Last Admin: 02/10/22 10:25 Dose: 10 ml Sodium Chloride (Sodium Chloride 0.9% 10 Ml Flush Syringe) 10 ml IV PRN PRN PRN Reason: LINE FLUSH Review of Systems All systems: negative (as per hpi;) Physical Examination - Vital Signs Vital Signs: Vital Signs Temp Pulse Resp BP Pulse Ox 98.1 F 91 H 16 157/67 99 02/09/22 18:30 02/09/22 18:30 02/09/22 18:30 02/09/22 18:30 02/09/22 18:30 - Physical Exam Narrative exam: Gen: nad, well-nourished; Head: normocephalic; Eyes: no gaze deviation; no ptosis; ENT: normal vocalization; CVS: warm and well-perfused; Pulm: normal work of breathing; GI: appears non-distended; Ext: no cyanosis appreciated at distal extremities; Skin: no acute rash at distal extremities; Heme: no pathologic ecchymosis appreciated at distal extremities; Neuro: alert, oriented to name, age, month, year, surroundings, no dysarthria, no aphasia, CN 2 - PERRL, visual stark grossly intact, CN 3, 4, 6 - EOMI, CN 5 - facial sensation symmetric to light touch, CN 7 - mild left facial droop, CN 8 - hearing grossly intact, CN 9, 10 - uvula midline, CN 11 symmetric shoulder movement, CN 12 - tongue midline; Motor - at least 4+/5 at all exts except 3/5 strength w/ left hand flat sheet maker; Sensory - light touch symmetric, Cerebellar - fnf /hts intact, Gait - deferred secondary to fall risk; NIHSS (1a.) Level of Consciousness:0 (1b.) LOC Questions:0 (1c.) LOC Commands:0 (2.) Best Gaze:0 (3.) Visual:0 (4.) Facial Palsy:1 (5a.) Motor Arm, Left:0 (5b.) Motor Arm, Right:0 (6a.) Motor Leg, Left:0 (6b.) Motor Leg, Right:0 (7.) Limb Ataxia:0 (8.) Sensory:0 (9.) Best Language:0 (10.) Dysarthria: (11.) Extinction and Inattention:0 NIHSS Total Score:1 Results - Laboratory Findings CBC and BMP: 02/10/22 04:00 02/10/22 04:00 Abnormal Lab Findings: Abnormal Labs 02/09/22 02/09/22 02/09/22 19:07 19:07 19:07 RBC 5.66 H Hgb 14.7 H Hct 46.6 H MCH 26 L Lymph % (Auto) 10.2 L Lymph # (Auto) 0.8 L Seg Neutrophils % 86.5 H PT Thrombin Time Chloride 96.6 L Glucose 125 H POC Glucose Lactic Acid 3.20 H* Total Bilirubin 1.80 H Total Creatine Kinase 216 H CK-MB (CK-2) 4.1 H Salicylates 02/09/22 02/09/22 02/09/22 19:07 19:07 19:07 RBC Hgb Hct MCH Lymph % (Auto) Lymph # (Auto) Seg Neutrophils % PT Thrombin Time Chloride Glucose POC Glucose Lactic Acid Total Bilirubin Total Creatine Kinase 217 H 198 H CK-MB (CK-2) Salicylates < 0.3 L 02/09/22 02/09/22 02/09/22 20:42 21:18 22:41 RBC Hgb Hct MCH Lymph % (Auto) Lymph # (Auto) Seg Neutrophils % PT 16.1 H Thrombin Time 22.5 H Chloride Glucose POC Glucose Lactic Acid 3.80 H* 3.80 H* Total Bilirubin Total Creatine Kinase CK-MB (CK-2) Salicylates 02/10/22 07:30 RBC Hgb Hct MCH Lymph % (Auto) Lymph # (Auto) Seg Neutrophils % PT Thrombin Time Chloride Glucose POC Glucose 142 H Lactic Acid Total Bilirubin Total Creatine Kinase CK-MB (CK-2) Salicylates Assessment and Plan 77 yo left-handed female with hypertension who suffered an episode yesterday of not knowing who she is but able to recognize her . 1. Acute Ischemic Stroke / TIA - ASA 325 mg PO qday, MRI Brain w/o contrast, CTA Head/Neck w/ & w/o contrast, TTEcho, confirm LDL/TSH/Covid-19/UDS, baseline CXR, EKG; telemetry, NIHSS q4 hours; SBP goal 160-200 mmHg and DBP 80-100 mmHg for now until MR Brain is available. Statin therapy for a goal LDL of 70, when patient passes swallow evaluation. PT/OT/ST/Swallow evaluation. Long-term risk- factor modification, including a strict diet/exercise regimen for secondary stroke prophylaxis. Stroke education prior to discharge. Followup with Stroke Neurology in 4-6 weeks. 2. Subclinical Seizure - EEG (inpatient or outpatient) 3. Metabolic Encephalopathy / Delirium - ua, b12, folate, tsh. 4. Left Hand Weakness - mri brain / cervical spine w/ wo contrast. 5. Hypertension - permissive hypertension until MR Brain is available. Gabriel Tena MD Neurology [id number]
[2022-02-10] MEDS: ASPIRIN 325 MG TAB PO SCH (12:41)
--- NOTE | 2022-02-10 13:59 | Magnetic Resonance Report ---
MR brain wo con, MR MRA/MRV head wo con INDICATION / CLINICAL INFORMATION: stroke. TECHNIQUE: Multiplanar, multisequence MRI of the brain. MRA of the head. 3-D/MIP reformats postprocessed. Percentage stenosis is determined by direct quantit ative measurements of distal internal carotid artery diameter compared with normal reference segments or by criteria similar to NASCET where applicable. COMPARISON: 02/09/2022 CT head FINDINGS: BRAIN: Intracranial: No restricted diffusion. No hemorrhage. Ventricular caliber is normal. No extra-axial c ollection. No mass. No herniation. Small quantity of periventricular and centrum semiovale T2 white matter hyperintensities most consistent with mild sequela of chronic microvascular disease. Orbits: No significant abnormality of visualized orbits. Sinuses/mastoid: No significant abnormality of visualized sinuses and mastoid air cells. Additional findings: None. MRA HEAD: Intracranial vertebral arteries: No occlusion or significant stenosis. Basilar artery: No occlusion or significant stenosis. Posterior cerebral arteries: No occlusion or significant stenosis. Intracranial internal carotid arteries: No occlusion or significant stenosis. Anterior cerebral arteries: No occlusion or significant stenosis. Middle cerebral arteries: No occlusion or significant stenosis. No aneurysm. Additional findings: None. IMPRESSION: 1. MRI Brain: No acute intracranial abnormality. 2. MRA Head: No occlusion or hemodynamically significant stenosis. Signer Name: Marcial Bacon MD Signed: 02/10/2022 1:55 PM Workstation Name: [id number]
[2022-02-10 14:42] LABS: Basophils # (Auto) 0.1 K/mm3 (0.0-0.1); Basophils % (Auto) 0.7 % (0.0-1.8); Hematocrit 39.6 % (30.3-42.9); Hemoglobin 13.1 gm/dl (10.1-14.3); Lymphocytes # (Auto) 1.4 K/mm3 (1.2-5.4); Lymphocytes % (Auto) 18.8 % (13.4-35.0); Mean Corpuscular HGB Conc 33 % (30-34); Mean Corpuscular Volume 81 fl (79-97); Monocytes # (Auto) 0.7 K/mm3 (0.0-0.8); Monocytes % (Auto) 9.3 % (0.0-7.3); Platelet Count 139 K/mm3 (140-440); Red Blood Count 4.88 M/mm3 (3.65-5.03); Red Cell Distribution Width 15.1 % (13.2-15.2)
[2022-02-10 14:43] LABS: Blood Urea Nitrogen 17 mg/dL (7-17); Calcium 8.7 mg/dL (8.4-10.2); Chol/HDL Ratio 1.72 %; HDL Cholesterol 94 mg/dL (40-59); Hemolysis Index 7; LDL Cholesterol,Direct 63 mg/dL (50-130)
[2022-02-10 14:48] LABS: BUN/Creatinine Ratio 24
[2022-02-10] MEDS: ACETAMINOPHEN 325 MG TAB PO PRN (21:36)
[2022-02-10 21:56] LABS: Color,Urine Yellow (Yellow)
[2022-02-10 22:01] LABS: Mucus,Urine FEW /HPF
[2022-02-10 22:02] LABS: RBC,Urine < 1.0 /HPF (0.0-6.0)
[2022-02-10 22:10] LABS: Amphetamine Screen,Urine PRESUMPTIVE NEGATIVE; Benzodiazepines Screen,Urine PRESUMPTIVE NEGATIVE; Cannabinoid Screen,Urine PRESUMPTIVE NEGATIVE; Cocaine Screen,Urine PRESUMPTIVE NEGATIVE; Methadone Screen,Urine PRESUMPTIVE NEGATIVE; Opiate Screen,Urine PRESUMPTIVE NEGATIVE
--- NOTE | 2022-02-10 22:25 | Progress Note ---
Assessment and Plan Assessment and plan: CT head without contrast no acute abnormality noted MRI brain; no acute abnormality noted MRA head no occlusion or hemodynamically significant stenosis CTA head; no significant abnormality CTA neck; no significant abnormality echocardiogram; LVEF 60 to 65% no PFO Insomnia/and fidgetiness and headache; CT head negative for acute abnormality Will leave melatonin 5 mg nightly Ambulate as tolerated Possible discharge home tomorrow if stable (1) Acute metabolic encephalopathy Current Visit: Yes Status: Acute Plan to address problem: Admit the patient to the medical telemetry. NPO. D5 half-normal saline at the rate of 100 cc/h. Aspirin 325 mg p.o. daily. Lipitor 40 mg p.o. daily. MRI of the brain MRA of the brain and neck. Neurology evaluation (2) Hypertension Current Visit: Yes Status: Acute Plan to address problem: Labetalol 10 mg IV every 6 hours as needed. We continue the home medication (3) Confusion Current Visit: Yes Status: Acute Plan to address problem: D5 half-normal saline at the rate of 100 cc/h. Aspirin 325 mg p.o. daily. Lipitor 40 mg p.o. daily. MRI of the brain MRA of the brain and neck. Neurology evaluation (4) Hypertensive encephalopathy Current Visit: Yes Status: Acute Plan to address problem: Labetalol 10 mg IV every 6 hours as needed. We continue the home medication. MRI of the brain. Neurology evaluation (5) Weakness Current Visit: Yes Status: Acute Plan to address problem: PT OT speech evaluation. Multivitamin 1 tablet p.o. daily. (6) Lactic acidosis Current Visit: Yes Status: Acute Plan to address problem: D5 half-normal saline at the rate of 100 cc/h. Rocephin 2 g IV daily. Repeat lactic acid in 4 hours (7) DVT prophylaxis Current Visit: Yes Status: Acute Plan to address problem: SCD for DVT prophylaxis. Pepcid 20 mg IV every 12 hours for GI prophylaxis. Patient is a full code Follow PT OT evaluation recommendations Follow neurology evaluation recommendation Possible discharge home tomorrow if stable 02/11/2022 Ambulate as tolerated Possible discharge home tomorrow if stable Melatonin 5 mg nightly, fall precautions History Interval history: Patient still complains of some headache and dizziness Unsteady gait and generalized weakness Vital signs noted CVA work-up is in progress Patient complains of insomnia and fidgetiness Hospitalist Physical - Constitutional Vitals: Temp Pulse Resp BP Pulse Ox 98.0 F 72 18 146/66 96 02/10/22 19:32 02/10/22 19:32 02/10/22 19:32 02/10/22 19:32 02/10/22 19:32 General appearance: Present: no acute distress, well-nourished - EENT Eyes: Present: PERRL, EOM intact - Neck Neck: Present: supple, normal ROM - Respiratory Respiratory effort: normal Respiratory: bilateral: diminished, negative: rales, rhonchi, wheezing - Cardiovascular Rhythm: regular Heart Sounds: Present: S1 & S2 - Extremities Extremities: no ischemia, No edema - Abdominal General gastrointestinal: soft, non-tender, non-distended, normal bowel sounds - Integumentary Integumentary: Present: clear, warm - Psychiatric Psychiatric: appropriate mood/affect, cooperative - Neurologic Neurologic: CNII-XII intact, moves all extremities HEART Score - HEART Score Troponin: Troponin T < 0.010 ng/mL (0.00-0.029) 02/09/22 19:07 Troponin T < 0.010 ng/mL (0.00-0.029) 02/09/22 19:07 Results - Labs CBC & Chem 7: 02/10/22 04:00 02/10/22 04:00 Labs: Laboratory Last Values WBC 7.6 K/mm3 (4.5-11.0) 02/10/22 04:00 RBC 4.88 M/mm3 (3.65-5.03) 02/10/22 04:00 Hgb 13.1 gm/dl (10.1-14.3) 02/10/22 04:00 Hct 39.6 % (30.3-42.9) D 02/10/22 04:00 MCV 81 fl (79-97) 02/10/22 04:00 MCH 27 pg (28-32) L 02/10/22 04:00 MCHC 33 % (30-34) 02/10/22 04:00 RDW 15.1 % (13.2-15.2) 02/10/22 04:00 Plt Count 139 K/mm3 (140-440) L 02/10/22 04:00 Lymph % (Auto) 18.8 % (13.4-35.0) 02/10/22 04:00 [place] % (Auto) 9.3 % (0.0-7.3) H 02/10/22 04:00 Eos % (Auto) 0.0 % (0.0-4.3) 02/10/22 04:00 Baso % (Auto) 0.7 % (0.0-1.8) 02/10/22 04:00 Lymph # (Auto) 1.4 K/mm3 (1.2-5.4) 02/10/22 04:00 [place] # (Auto) 0.7 K/mm3 (0.0-0.8) 02/10/22 04:00 Eos # (Auto) 0.0 K/mm3 (0.0-0.4) 02/10/22 04:00 Baso # (Auto) 0.1 K/mm3 (0.0-0.1) 02/10/22 04:00 Seg Neutrophils % 71.2 % (40.0-70.0) H 02/10/22 04:00 Seg Neutrophils # 5.4 K/mm3 (1.8-7.7) 02/10/22 04:00 PT 16.1 Sec. (12.2-14.9) H 02/09/22 21:18 INR 1.13 (0.87-1.13) 02/09/22 21:18 APTT 31.5 Sec. (24.2-36.6) 02/09/22 21:18 Thrombin Time 22.5 Sec. (15.1-19.6) H 02/09/22 21:18 Sodium 139 mmol/L (137-145) 02/10/22 04:00 Potassium 3.8 mmol/L (3.6-5.0) 02/10/22 04:00 Chloride 99.9 mmol/L (98-107) 02/10/22 04:00 Carbon Dioxide 26 mmol/L (22-30) 02/10/22 04:00 Anion Gap 17 mmol/L 02/10/22 04:00 BUN 17 mg/dL (7-17) 02/10/22 04:00 Creatinine 0.7 mg/dL (0.6-1.2) 02/10/22 04:00 Estimated GFR > 60 ml/min 02/10/22 04:00 BUN/Creatinine Ratio 24 % 02/10/22 04:00 Glucose 148 mg/dL (65-100) H 02/10/22 04:00 POC Glucose 138 mg/dL (70-105) H 02/10/22 20:23 Ketones Quantitative Negative (Negative) 02/09/22 19:07 Lactic Acid 1.70 mmol/L (0.7-2.0) 02/10/22 20:53 Calcium 8.7 mg/dL (8.4-10.2) 02/10/22 04:00 Total Bilirubin 1.80 mg/dL (0.1-1.2) H 02/09/22 19:07 AST 32 units/L (5-40) 02/09/22 19:07 ALT 23 units/L (7-56) 02/09/22 19:07 Alkaline Phosphatase 120 units/L (35-129) 02/09/22 19:07 Total Creatine Kinase 198 units/L (30-135) H 02/09/22 19:07 Total Creatine Kinase 216 units/L (30-135) H 02/09/22 19:07 Total Creatine Kinase 217 units/L (30-135) H 02/09/22 19:07 CK-MB (CK-2) 4.1 ng/mL (0.0-4.0) H 02/09/22 19:07 CK-MB (CK-2) Rel Index 1.8 (0-4) 02/09/22 19:07 Troponin T < 0.010 ng/mL (0.00-0.029) 02/09/22 19:07 Troponin T < 0.010 ng/mL (0.00-0.029) 02/09/22 19:07 C-Reactive Protein 0.30 mg/dL (0.00-1.30) 02/09/22 19:07 NT-Pro-B Natriuret Pep 590.2 pg/mL (0-900) 02/09/22 19:07 Total Protein 7.4 g/dL (6.3-8.2) 02/09/22 19:07 Albumin 4.7 g/dL (3.9-5) 02/09/22 19:07 Albumin/Globulin Ratio 1.7 % 02/09/22 19:07 Triglycerides 85 mg/dL (2-149) 02/10/22 04:00 Cholesterol 162 mg/dL (50-199) 02/10/22 04:00 LDL Cholesterol Direct 63 mg/dL (50-130) 02/10/22 04:00 HDL Cholesterol 94 mg/dL (40-59) H 02/10/22 04:00 Cholesterol/HDL Ratio 1.72 % 02/10/22 04:00 Urine Color Colorless (Yellow) 02/09/22 20:40 Urine Turbidity Clear (Clear) 02/09/22 20:40 Specific [place] (Man) 1.005 (1.003-1.030) 02/09/22 20:40 Ur Protein (Man) <30 mg dl mg/dL (Negative) 02/09/22 20:40 Ur Ketones (Man) Negative (Negative) 02/09/22 20:40 Ur Nitrite (Man) Negative (Negative) 02/09/22 20:40 Urine Bilirubin (Man) Negative (Negative) 02/09/22 20:40 Leukocyte Esterase (Man) Negative (Negative) 02/09/22 20:40 Urine WBC (Auto) 1.0 /HPF (0.0-6.0) 02/09/22 20:40 Urine RBC (Auto) 3.0 /HPF (0.0-6.0) 02/09/22 20:40 U Epithel Cells (Auto) 2.0 /HPF (0-13.0) 02/09/22 20:40 Urine RBC (Manual) 3+ (Negative) 02/09/22 20:40 Urine Mucus Few /HPF 02/09/22 20:40 Urine Yeast (Budding) Few /HPF 02/09/22 20:30 Salicylates < 0.3 mg/dL (2.8-20.0) L 02/09/22 19:07 Urine Opiates Screen Negative 02/09/22 20:40 Urine Methadone Screen Negative 02/09/22 20:40 Ur Barbiturates Screen Negative 02/09/22 20:40 Ur Phencyclidine Scrn Negative 02/09/22 20:40 Ur Amphetamines Screen Negative 02/09/22 20:40 U Benzodiazepines Scrn Negative 02/09/22 20:40 Urine Cocaine Screen Negative 02/09/22 20:40 U Marijuana (THC) Screen Negative 02/09/22 20:40 Drugs of Abuse Note Disclamer 02/09/22 20:40 Plasma/Serum Alcohol < 0.01 % (0-0.07) 02/09/22 19:07 Khan/IV: Voiding Method Toilet Active Medications - Current Medications Current Medications: Generic Name Dose Route Start Last Admin Trade Name Freq PRN Reason Stop Dose Admin Acetaminophen 650 mg 02/09/22 22:04 02/10/22 21:36 Acetaminophen 325 Mg Tab PO 650 mg Q4H PRN Administration Pain MILD(1-3)/Fever >100.5/[id number] Aspirin 325 mg 02/10/22 10:00 02/10/22 12:41 Aspirin 325 Mg Tab PO 325 mg QDAY STACIE Administration Atorvastatin Calcium 40 mg 02/10/22 22:00 02/10/22 21:16 Atorvastatin 40 Mg Tab PO 40 mg QHS STACIE Administration Famotidine 20 mg 02/10/22 10:00 02/10/22 21:16 Famotidine 20 Mg/2 Ml Inj IV 20 mg BID STACIE Administration Ceftriaxone Sodium 2 gm in 100 mls @ 200 mls/hr 02/10/22 10:00 02/10/22 10:25 Rocephin/Ns 2 Gm/100 Ml IV 200 mls/hr Q24H STACIE Administration Protocol Labetalol HCl 10 mg 02/09/22 22:04 02/10/22 02:48 Labetalol 20 Mg/4 Ml Inj IV 10 mg Q5MIN PRN Administration to maintain SBP < 180 Morphine Sulfate 2 mg 02/09/22 22:04 Morphine 2 Mg/1 Ml Inj IV Q4H PRN Pain, Moderate (4-6) Morphine Sulfate 4 mg 02/09/22 22:04 Morphine 4 Mg/1 Ml Inj IV Q4H PRN Pain , Severe (7-10) Ondansetron HCl 4 mg 02/09/22 22:04 Ondansetron 4 Mg/2 Ml Inj IV Q8H PRN Nausea And Vomiting Sodium Chloride 10 ml 02/10/22 10:00 02/10/22 21:16 Sodium Chloride 0.9% 10 Ml Flush Syringe IV 10 ml BID STACIE Administration Sodium Chloride 10 ml 02/09/22 22:04 Sodium Chloride 0.9% 10 Ml Flush Syringe IV PRN PRN LINE FLUSH
[2022-02-11] MEDS: ASPIRIN 325 MG TAB PO SCH (09:38)
[2022-02-11] MEDS: FAMOTIDINE 20 MG/2 ML INJ IV SCH (09:38)
[2022-02-11] MEDS: cefTRIAXone/NS 2 GM/100 ML 2 GM/100 ML BAG IV SCH (09:38)
[2022-02-11] MEDS: ACETAMINOPHEN 325 MG TAB PO PRN (09:46)
[2022-02-11 18:19] LABS: ABG Base Excess 3.7 mmol/L (-2.0-3.0); ABG Methemoglobin 0.5 % (0.0-1.5); ABG Oxygen Saturation 94.8 % (95.0-99.0); ABG PCO2 46.3 mm Hg; ABG PH 7.414 pH Units (7.350-7.450); ABG PO2 63.1 mm Hg (80.0-90.0)
[2022-02-11] MEDS: FAMOTIDINE 20 MG TAB PO SCH (21:54)
--- NOTE | 2022-02-12 07:32 | Progress Note ---
Assessment and Plan Assessment and plan: Patient has very low TSH, consistent with hyperthyroidism We will check thyroid panel, initiate low-dose of methimazole Patient's heart rate is within normal limits Insomnia/and fidgetiness and headache; CT head negative for acute abnormality Will leave melatonin 5 mg nightly Ambulate as tolerated Possible discharge home tomorrow if stable (1) Acute metabolic encephalopathy Suspected acute CVA Negative CVA work-up reviewed as below/acute CVA ruled out CT head without contrast no acute abnormality noted MRI brain; no acute abnormality noted MRA head no occlusion or hemodynamically significant stenosis CTA head; no significant abnormality CTA neck; no significant abnormality echocardiogram; LVEF 60 to 65% no PFO PT and OT evaluated; patient has no needs Continue current medications (2) Hypertension/moderate control Continue current antihypertensives and as needed medications (3) Confusion Probably secondary to hyperthyroidism, advanced age Possible dementia, multifactorial Supportive care, treat underlying cause Neuro work-up is negative (4) Hypertensive encephalopathy Current Visit: Yes Status: Acute Plan to address problem: Labetalol 10 mg IV every 6 hours as needed. We continue the home medication. MRI of the brain. Neurology evaluation (5) Weakness Current Visit: Yes Status: Acute Plan to address problem: PT OT speech evaluation. Multivitamin 1 tablet p.o. daily. (6) Lactic acidosis Current Visit: Yes Status: Acute Plan to address problem: D5 half-normal saline at the rate of 100 cc/h. Rocephin 2 g IV daily. Repeat lactic acid in 4 hours (7) DVT prophylaxis Current Visit: Yes Status: Acute Plan to address problem: SCD for DVT prophylaxis. Pepcid 20 mg IV every 12 hours for GI prophylaxis. Patient is a full code Follow PT OT evaluation recommendations Follow neurology evaluation recommendation Possible discharge home tomorrow if stable 02/11/2022 Ambulate as tolerated Possible discharge home tomorrow if stable Melatonin 5 mg nightly, fall precautions History Interval history: I have seen and examined the patient at the bedside this morning Patient's chart and medication list reviewed Patient's TSH is very low/consistent with hyperthyroidism We will check thyroid panel. Hospitalist Physical - Constitutional Vitals: Temp Pulse Resp BP Pulse Ox 98.0 F 63 18 142/65 94 02/12/22 04:21 02/12/22 04:21 02/12/22 04:21 02/12/22 04:21 02/12/22 04:21 General appearance: Present: no acute distress, well-nourished HEART Score - HEART Score Troponin: Troponin T < 0.010 ng/mL (0.00-0.029) 02/09/22 19:07 Troponin T < 0.010 ng/mL (0.00-0.029) 02/09/22 19:07 Results - Labs CBC & Chem 7: 02/10/22 04:00 02/10/22 04:00 Labs: Laboratory Last Values WBC 7.6 K/mm3 (4.5-11.0) 02/10/22 04:00 RBC 4.88 M/mm3 (3.65-5.03) 02/10/22 04:00 Hgb 13.1 gm/dl (10.1-14.3) 02/10/22 04:00 Hct 39.6 % (30.3-42.9) D 02/10/22 04:00 MCV 81 fl (79-97) 02/10/22 04:00 MCH 27 pg (28-32) L 02/10/22 04:00 MCHC 33 % (30-34) 02/10/22 04:00 RDW 15.1 % (13.2-15.2) 02/10/22 04:00 Plt Count 139 K/mm3 (140-440) L 02/10/22 04:00 Lymph % (Auto) 18.8 % (13.4-35.0) 02/10/22 04:00 [place] % (Auto) 9.3 % (0.0-7.3) H 02/10/22 04:00 Eos % (Auto) 0.0 % (0.0-4.3) 02/10/22 04:00 Baso % (Auto) 0.7 % (0.0-1.8) 02/10/22 04:00 Lymph # (Auto) 1.4 K/mm3 (1.2-5.4) 02/10/22 04:00 [place] # (Auto) 0.7 K/mm3 (0.0-0.8) 02/10/22 04:00 Eos # (Auto) 0.0 K/mm3 (0.0-0.4) 02/10/22 04:00 Baso # (Auto) 0.1 K/mm3 (0.0-0.1) 02/10/22 04:00 Seg Neutrophils % 71.2 % (40.0-70.0) H 02/10/22 04:00 Seg Neutrophils # 5.4 K/mm3 (1.8-7.7) 02/10/22 04:00 PT 16.1 Sec. (12.2-14.9) H 02/09/22 21:18 INR 1.13 (0.87-1.13) 02/09/22 21:18 APTT 31.5 Sec. (24.2-36.6) 02/09/22 21:18 Thrombin Time 22.5 Sec. (15.1-19.6) H 02/09/22 21:18 ABG pH 7.414 pH Units (7.350-7.450) 02/11/22 17:40 ABG pCO2 46.3 mm Hg 02/11/22 17:40 ABG pO2 63.1 mm Hg (80.0-90.0) L 02/11/22 17:40 ABG HCO3 29.0 mmol/L (20.0-26.0) H 02/11/22 17:40 ABG O2 Saturation 94.8 % (95.0-99.0) L 02/11/22 17:40 ABG O2 Content 17.7 (0.0-44) 02/11/22 17:40 ABG Base Excess 3.7 mmol/L (-2.0-3.0) H 02/11/22 17:40 ABG Hemoglobin 13.6 gm/dl (12.0-16.0) 02/11/22 17:40 ABG Carboxyhemoglobin 2.1 % (0.0-5.0) 02/11/22 17:40 ABG Methemoglobin 0.5 % (0.0-1.5) 02/11/22 17:40 Oxyhemoglobin 92.4 % (95.0-99.0) L 02/11/22 17:40 FiO2 21 % 02/11/22 17:40 Sodium 139 mmol/L (137-145) 02/10/22 04:00 Potassium 3.8 mmol/L (3.6-5.0) 02/10/22 04:00 Chloride 99.9 mmol/L (98-107) 02/10/22 04:00 Carbon Dioxide 26 mmol/L (22-30) 02/10/22 04:00 Anion Gap 17 mmol/L 02/10/22 04:00 BUN 17 mg/dL (7-17) 02/10/22 04:00 Creatinine 0.7 mg/dL (0.6-1.2) 02/10/22 04:00 Estimated GFR > 60 ml/min 02/10/22 04:00 BUN/Creatinine Ratio 24 % 02/10/22 04:00 Glucose 148 mg/dL (65-100) H 02/10/22 04:00 POC Glucose 178 mg/dL (70-105) H 02/11/22 20:26 Ketones Quantitative Negative (Negative) 02/09/22 19:07 Lactic Acid 1.70 mmol/L (0.7-2.0) 02/10/22 20:53 Calcium 8.7 mg/dL (8.4-10.2) 02/10/22 04:00 Total Bilirubin 1.80 mg/dL (0.1-1.2) H 02/09/22 19:07 AST 32 units/L (5-40) 02/09/22 19:07 ALT 23 units/L (7-56) 02/09/22 19:07 Alkaline Phosphatase 120 units/L (35-129) 02/09/22 19:07 Total Creatine Kinase 198 units/L (30-135) H 02/09/22 19:07 Total Creatine Kinase 216 units/L (30-135) H 02/09/22 19:07 Total Creatine Kinase 217 units/L (30-135) H 02/09/22 19:07 CK-MB (CK-2) 4.1 ng/mL (0.0-4.0) H 02/09/22 19:07 CK-MB (CK-2) Rel Index 1.8 (0-4) 02/09/22 19:07 Troponin T < 0.010 ng/mL (0.00-0.029) 02/09/22 19:07 Troponin T < 0.010 ng/mL (0.00-0.029) 02/09/22 19:07 C-Reactive Protein 0.30 mg/dL (0.00-1.30) 02/09/22 19:07 NT-Pro-B Natriuret Pep 590.2 pg/mL (0-900) 02/09/22 19:07 Total Protein 7.4 g/dL (6.3-8.2) 02/09/22 19:07 Albumin 4.7 g/dL (3.9-5) 02/09/22 19:07 Albumin/Globulin Ratio 1.7 % 02/09/22 19:07 Triglycerides 85 mg/dL (2-149) 02/10/22 04:00 Cholesterol 162 mg/dL (50-199) 02/10/22 04:00 LDL Cholesterol Direct 63 mg/dL (50-130) 02/10/22 04:00 HDL Cholesterol 94 mg/dL (40-59) H 02/10/22 04:00 Cholesterol/HDL Ratio 1.72 % 02/10/22 04:00 Vitamin B12 471.3 pg/mL (211-911) 02/11/22 07:27 Folate 8.66 ng/mL (7.3-26.0) 02/11/22 07:27 TSH < 0.005 mlU/mL (0.270-4.200) L 02/11/22 07:27 Urine Color Colorless (Yellow) 02/09/22 20:40 Urine Turbidity Clear (Clear) 02/09/22 20:40 Specific [place] (Man) 1.005 (1.003-1.030) 02/09/22 20:40 Ur Protein (Man) <30 mg dl mg/dL (Negative) 02/09/22 20:40 Ur Ketones (Man) Negative (Negative) 02/09/22 20:40 Ur Nitrite (Man) Negative (Negative) 02/09/22 20:40 Urine Bilirubin (Man) Negative (Negative) 02/09/22 20:40 Leukocyte Esterase (Man) Negative (Negative) 02/09/22 20:40 Urine WBC (Auto) 1.0 /HPF (0.0-6.0) 02/09/22 20:40 Urine RBC (Auto) 3.0 /HPF (0.0-6.0) 02/09/22 20:40 U Epithel Cells (Auto) 2.0 /HPF (0-13.0) 02/09/22 20:40 Urine RBC (Manual) 3+ (Negative) 02/09/22 20:40 Urine Mucus Few /HPF 02/09/22 20:40 Urine Yeast (Budding) Few /HPF 02/09/22 20:30 Salicylates < 0.3 mg/dL (2.8-20.0) L 02/09/22 19:07 Urine Opiates Screen Negative 02/09/22 20:40 Urine Methadone Screen Negative 02/09/22 20:40 Ur Barbiturates Screen Negative 02/09/22 20:40 Ur Phencyclidine Scrn Negative 02/09/22 20:40 Ur Amphetamines Screen Negative 02/09/22 20:40 U Benzodiazepines Scrn Negative 02/09/22 20:40 Urine Cocaine Screen Negative 02/09/22 20:40 U Marijuana (THC) Screen Negative 02/09/22 20:40 Drugs of Abuse Note Disclamer 02/09/22 20:40 Plasma/Serum Alcohol < 0.01 % (0-0.07) 02/09/22 19:07 Microbiology: Microbiology 02/10/22 20:53 Peripheral/Venous Blood Culture - Preliminary NO GROWTH AFTER 24 HOURS 02/10/22 20:53 Peripheral/Venous Blood Culture - Preliminary NO GROWTH AFTER 24 HOURS Khan/IV: Voiding Method Toilet Active Medications - Current Medications Current Medications: Generic Name Dose Route Start Last Admin Trade Name Freq PRN Reason Stop Dose Admin Acetaminophen 650 mg 02/09/22 22:04 02/11/22 09:46 Acetaminophen 325 Mg Tab PO 650 mg Q4H PRN Administration Pain MILD(1-3)/Fever >100.5/VÁZQUEZ Aspirin 325 mg 02/10/22 10:00 02/11/22 09:38 Aspirin 325 Mg Tab PO 325 mg QDAY STACIE Administration Atorvastatin Calcium 40 mg 02/10/22 22:00 02/11/22 21:54 Atorvastatin 40 Mg Tab PO 40 mg QHS STACIE Administration Famotidine 20 mg 02/11/22 22:00 02/11/22 21:54 Famotidine 20 Mg Tab PO 20 mg BID STACIE Administration Ceftriaxone Sodium 2 gm in 100 mls @ 200 mls/hr 02/10/22 10:00 02/11/22 09:38 Rocephin/Ns 2 Gm/100 Ml IV 200 mls/hr Q24H STACIE Administration Protocol Labetalol HCl 10 mg 02/09/22 22:04 02/10/22 02:48 Labetalol 20 Mg/4 Ml Inj IV 10 mg Q5MIN PRN Administration to maintain SBP < 180 Morphine Sulfate 2 mg 02/09/22 22:04 Morphine 2 Mg/1 Ml Inj IV Q4H PRN Pain, Moderate (4-6) Morphine Sulfate 4 mg 02/09/22 22:04 Morphine 4 Mg/1 Ml Inj IV Q4H PRN Pain , Severe (7-10) Ondansetron HCl 4 mg 02/09/22 22:04 02/11/22 11:51 Ondansetron 4 Mg/2 Ml Inj IV 4 mg Q8H PRN Administration Nausea And Vomiting Sodium Chloride 10 ml 02/10/22 10:00 02/11/22 21:54 Sodium Chloride 0.9% 10 Ml Flush Syringe IV 10 ml BID STACIE Administration Sodium Chloride 10 ml 02/09/22 22:04 Sodium Chloride 0.9% 10 Ml Flush Syringe IV PRN PRN LINE FLUSH
[2022-02-12] MEDS ORDERED: methIMAzole 5 MG TAB PO SCH (08:00)
[2022-02-12 09:47] VITALS: BP 136/79
[2022-02-12 09:50] LABS: Free T4 (Free Thyroxine) 1.48 ng/dL (0.76-1.46)
[2022-02-12] MEDS: FAMOTIDINE 20 MG TAB PO SCH (10:02)
[2022-02-12] MEDS: cefTRIAXone/NS 2 GM/100 ML 2 GM/100 ML BAG IV SCH (10:02)
[2022-02-12] MEDS: ASPIRIN 325 MG TAB PO SCH (10:02)
--- NOTE | 2022-02-12 14:43 | Discharge Summary ---
Providers - Providers Date of Admission: 02/09/22 22:04 Date of discharge: 02/12/22 Attending physician: AMELIE CARPIO 02/09/22 22:04 Consult to Physician [CONS] Routine Comment: Consulting Provider: STEFANY RODRIGUES Physician Instructions: Reason For Exam: ams 02/09/22 22:05 Occupational Therapy Evaluate and Treat [CONS] Routine Comment: Reason For Exam: Neuro deficits Physical Therapy Evaluation and Treat [CONS] Routine Comment: Reason For Exam: Neuro deficits Primary care physician: SIXTO MONTAÑO Hospitalization Condition: Stable Pertinent studies: CT head without contrast no acute abnormality noted MRI brain; no acute abnormality noted MRA head no occlusion or hemodynamically significant stenosis CTA head; no significant abnormality CTA neck; no significant abnormality echocardiogram; LVEF 60 to 65% no PFO Hospital course: Acute metabolic encephalopathy resolved possible CVA[extensive CVA work-up is negative] CVA ruled out Symptoms probably due to TIA Hypertension Confusion, resolved Hypertensive encephalopathy Generalized weakness Lactic acidosis resolved DVT prophylaxis Patient has very low TSH, consistent with hyperthyroidism We will check thyroid panel, initiate low-dose of methimazole Patient's heart rate is within normal limits Insomnia/and fidgetiness and headache; CT head negative for acute abnormality Will leave melatonin 5 mg nightly Ambulate as tolerated Possible discharge home tomorrow if stable (1) Acute metabolic encephalopathy Suspected acute CVA Negative CVA work-up reviewed as below/acute CVA ruled out CT head without contrast no acute abnormality noted MRI brain; no acute abnormality noted MRA head no occlusion or hemodynamically significant stenosis CTA head; no significant abnormality CTA neck; no significant abnormality echocardiogram; LVEF 60 to 65% no PFO PT and OT evaluated; patient has no needs Continue current medications (2) Hypertension/moderate control Continue current antihypertensives and as needed medications (3) Confusion Probably secondary to hyperthyroidism, advanced age Possible dementia, multifactorial Supportive care, treat underlying cause Neuro work-up is negative (4) Hypertensive encephalopathy Current Visit: Yes Status: Acute Plan to address problem: Labetalol 10 mg IV every 6 hours as needed. We continue the home medication. MRI of the brain. Neurology evaluation (5) Weakness Current Visit: Yes Status: Acute Plan to address problem: PT OT speech evaluation. Multivitamin 1 tablet p.o. daily. (6) Lactic acidosis Current Visit: Yes Status: Acute Plan to address problem: D5 half-normal saline at the rate of 100 cc/h. Rocephin 2 g IV daily. Repeat lactic acid in 4 hours (7) DVT prophylaxis Current Visit: Yes Status: Acute Plan to address problem: SCD for DVT prophylaxis. Pepcid 20 mg IV every 12 hours for GI prophylaxis. Patient is a full code Follow PT OT evaluation recommendations Follow neurology evaluation recommendation Possible discharge home tomorrow if stable 02/11/2022 Ambulate as tolerated Possible discharge home tomorrow if stable Melatonin 5 mg nightly, fall precautions Disposition: 01 HOME / SELF CARE / HOMELESS Final Discharge Diagnosis (Prints w/discharge instructions): Acute metabolic encephalopathy resolved. possible CVA[extensive CVA work-up is negative] CVA ruled out. Symptoms probably due to TIA. Hypertension. Confusion, resolved. Hypertensive encephalopathy. Generalized weakness. Lactic acidosis resolved. DVT prophylaxis Time spent for discharge: 35 minutes Core Measure Documentation - Palliative Care Palliative Care/ Comfort Measures: Not Applicable - Core Measures Any of the following diagnoses?: none Exam - Constitutional Vitals: Temp Pulse Resp BP Pulse Ox 98.5 F 76 18 136/79 96 02/12/22 08:01 02/12/22 08:01 02/12/22 08:01 02/12/22 08:01 02/12/22 10:00 General appearance: Present: obese (Morbidly obese) - EENT Eyes: Present: PERRL, EOM intact - Neck Neck: Present: supple, normal ROM - Respiratory Respiratory effort: normal Respiratory: bilateral: diminished, negative: rales, rhonchi, wheezing - Cardiovascular Rhythm: regular Heart Sounds: Present: S1 & S2 - Extremities Extremities: no ischemia, No edema - Abdominal General gastrointestinal: Present: soft, non-tender, non-distended, normal bowel sounds - Integumentary Integumentary: Present: clear, warm - Musculoskeletal Musculoskeletal: strength equal bilaterally, generalized weakness - Psychiatric Psychiatric: appropriate mood/affect, cooperative - Neurologic Neurologic: moves all extremities Plan Activity: advance as tolerated, fall precautions Diet: other (Cardiac diet) Additional Instructions: If you have worsening symptoms contact MD or go to the nearest emergency room as needed. Advised to see your [place] primary care physician in 1 week. You need to see private patient services manager in 1 week. Strongly advised to comply with medications diet and follow-up visits. Advised dietary modification, exercise as tolerated and weight reduction when you are medically stable Follow up with: SIXTO MONTAÑO MD [Primary Care Provider] - 3-5 Days Prescriptions: Aspirin EC [Halfprin EC] 81 mg PO QDAY #30 tablet. Melatonin [Melatonin 5MG TAB] 5 mg PO QHS PRN #10 tablet PRN Reason: Sleep Famotidine [Pepcid] 20 mg PO BID #30 tablet methIMAzole [Tapazole] 5 mg PO Q8HR #90 tablet
[2022-02-12] MEDS ORDERED: MELATONIN 5 MG TAB PO PRN (22:00)
== END 2022-02-12 15:43 | disposition home or self-care (01) | DRG 71 ==
LOC: ED 17:16 → 4A 22:04
PROVIDERS: ADMIT Hospitalist; ATTEND Internal Medicine
DX: G93.41 Metabolic encephalopathy (principal); E87.2 Acidosis; I67.4 Hypertensive encephalopathy; I10 Essential (primary) hypertension
CPT/HCPCS: 36415; 36600; 70450; 70496; 70498; 70544; 70551; 71045; 80048; 80053; 80061; 80307; 80320; 81001; 82010; 82140; 82306; 82550; 82553; 82607; 82747; 82803; 82962; 83880; 84439; 84443; 84484; 85025; 85610; 85670; 85730; 86140; 87040; 87086; 93005; 93306; 96374; 96375; 99285; G0378; J3490; J7070; C8929; G0480; J0696; J2405; Q9967